=== PATIENT | female | born 1960 | race Two or more races ===

== ENCOUNTER 2024-12-06 09:04 | Day surgery (SDC) | payer MEDICARE, MEDICAID ==
[~2024-12-06] VITALS: Ht 149.9 cm; Wt 64.4 kg
[2024-12-06] MEDS ORDERED: ASPI1TAB20 PO (09:28)
[2024-12-06] MEDS ORDERED: ATOR20TA PO (09:28)
[2024-12-06] MEDS ORDERED: CHOLCAP10 PO (09:28)
--- NOTE | 2024-12-06 11:11 | DVHHP2 ---
GI H&P Pre-Op Assessment Date: 12/06/24 Chief complaint: Blood in stool HPI: per clinic note Past medical history: per clinic note Past surgical history: per clinic note Family history: per clinic note Physical exam: General: NAD, AAOX3 HEENT: PERRL, no scleral icterus, normal hearing, gums without lesions or ble eding, oropharynx clear without erythema or exudate. Neck: Supple without enlargement of the thyroid, or lymphadenopathy. Chest: Normal size and shape, no tenderness, lung wilson clear to auscultation and percussion, nonlabored breathing. Heart: RRR, no murmur Abdomen: non-distended, no tenderness to palpation, +BS, no hepatosplenomegaly Extremities: no edema Neurological: CN II-XII intact, sensation intact in all extremities, 5+ strength in all extremities Skin: No rashes, No jaundice Assessment: - blood in stool Plan: - Colonoscopy - Risks (bleeding, infection, perforation, reaction to sedation medications and cardiopulmonary arrest) and benefit of the procedure were explained to patient. Patient agrees to undergo the procedure. DEMARCUS OSMAN MD Dec 06, 2024 11:11
--- NOTE | 2024-12-06 11:33 | DVHOP2 ---
Operative Report DATE OF OPERATION: 12/06/24 PROCEDURE: Colonoscopy. PREOPERATIVE INDICATION: The patient is a 64 -year-old female undergoing colonoscopy for blood in stool. POSTOPERATIVE DIAGNOSES: 1. 3 mm transverse colon polyp was removed with cold biopsy forceps. 2. Few small diverticulosis in the left colon. 3. Internal hemorrhoids PROCEDURE PERFORMED BY: Ezequiel Moore M.D. SCOPE: Olympus videocolonoscope. ASA CLASS: 3 PREOPERATIVE MEDICATIONS: MAC with Dr Mays PROCEDURE IN DETAIL: After obtaining an informed consent, the patient was placed on left lateral decubitus position. She was then sedated with the above medications. A rectal examination was performed that was normal. The colonoscope was then passed through the anus into the rectosigmoid and through the descending, transverse, and ascending colon up to the cecum with vi sualization of the appendiceal orifice, base of the cecum and the ileocecal valve. A 3 mm transverse colon polyp was removed with cold biopsy forceps. There was a few small diverticulosis in the left colon. There were internal hemorrhoids. The colonoscope was then withdrawn. The patient tolerated the procedure well without difficulty. WITHDRAWAL TIME: 6 minutes QUALITY OF THE PREP: [place] Bowel Prep score: 6 COMPLICATIONS : None SPECIMENS: Colon polyp DISPOSITION: D/C to home PLAN: 1. Repeat colonoscopy base on biopsy result EZEQUIEL MOORE MD Dec 06, 2024 11:33
--- NOTE | 2024-12-06 11:33 | DVHDS2 ---
Physician Discharge Progress N Final Diagnosis: Colon polyp, diverticulosis, internal hemorrhoids Operations or Procedures: Operations or Procedures Colonoscopy with cold biopsy polypectomy Condition on Discharge: Good Disposition: Home Discharge Instructions: Diet: Regular Activity: No Restrictions, As Tolerated Medications: Resume previous home medications Follow Up Care: Discharge Statement: "Patient was advised to return to the ER or call 911 if any headaches, dizziness, shortness of breath, chest pain, abdominal pain, bleeding, fevers, or worsening of medical condition. Patient was counseled about treatment plan, medications, possible side effects, patientverbalized understanding. All questions were answered to the best of my ability. This discharge took greater then 30 minutes in planning, reviewing documentation, counseling the patient, and discussing with other team members." DEMARCUS OSMAN MD Dec 06, 2024 11:33
[2024-12-06 11:35] VITALS: TEMP 97.6; O2SAT 97
[2024-12-06 12:20] VITALS: BP 153/71; PULSE 63; RESP 13; O2SAT 97
== END 2024-12-06 12:38 | disposition home or self-care (01) ==
LOC: GI 09:04
PROVIDERS: ATTEND Internal Medicine Gastroenterology
DX: K92.1 Melena (principal); D12.3 Benign neoplasm of transverse colon; K57.30 Diverticulosis of large intestine without perforation or abscess without bleeding; K64.8 Other hemorrhoids; I10 Essential (primary) hypertension; E11.9 Type 2 diabetes mellitus without complications; E78.5 Hyperlipidemia, unspecified; Z79.899 Other long term (current) drug therapy
CPT/HCPCS: 45380; 88305; J7030

== ENCOUNTER 2025-06-11 11:01 | Emergency (ER) | payer MEDICARE, MEDICAID ==
[~2025-06-11] VITALS: Ht 149.9 cm; Wt 67.5 kg
[~2025-06-11 11:01] MED LIST: ASPI1TAB20 PO; ATOR20TA PO; CHOLCAP10 PO
--- NOTE | 2025-06-11 12:17 | ED.PDOC ---
Musculoskeletal HPI Comments 65 year old female presents to the ED with a chief complaint of LT leg calf onset 2 weeks. Patient states she has been experiencing, constant, sharp LT calf pain. Patient states she has taken Naproxen, Tylenol for pain with no improvement of symptoms. She has seen PCP, states there has been no workup done. No other symptoms or modifying factors present at this time. Denies fall, injury, trauma Denies numbness/tingling Denies fever, chills, nausea vomiting Chief Complaint: Lower Extremity Time Seen by MD: 12:05 Reviewed Notes: Medications, Allergies Allergies: Coded Allergies: Diclofenac (Verified Allergy, Unknown, 06/11/25) RASH Home Meds Reported Medications Atorvastatin Calcium (Lipitor) 20 Mg Tab, 20 MG PO DAILY, TAB 12/06/24 Aspirin (Aspir-81) 81 Mg Tab, 81 MG PO DAILY, TAB 12/06/24 Cholecalciferol (D2000 Ultra Strength) 2,000 Unit Cap, 2000 UNIT PO DAILY, CAP 12/06/24 Information Source: Patient Mode of Arrival: Ambulatory Location: Left Extremity Location: Calf Timing: Weeks Prehospital treatment: None Severity: Moderate Able to Move Extremity: Yes Bear Weight: Limited Pain: Moderate Mechanism: Spontaneous Circumstances: Spontaneous Onset of Symptoms: Spontaneous Symptoms: Pain DVT Risk Factors: NONE Associated signs and symptoms: Other (calf pain) Past Medical History PAST MEDICAL HISTORY: Denies Surgical History: Denies all surgeries RADIATION ONCOLOGY NURSE History: No Pertinent RADIATION ONCOLOGY NURSE History Family History Family History: Reviewed,noncontributory to illness, No family hx of Cancer, No family hx of DM, No family hx of Heart rolly, No family hx of HTN, No family hx ofKidney rolly, No family hx of Liver rolly, No family hx of Lung rolly, No family hx of Stroke Social History Smoker: Non-Smoker Alcohol: Denies ETOH Use Drugs: Denies Drug Use Lives In: Home All Other Systems: Reviewed and Negative (as per HPI) Physical Exam General Appearance: Normal HEENT: Normal ENT Inspection, Pharynx Normal, TMs Normal Neck: Full Range of Motion, Non-Tender, Normal, Normal Inspection Respiratory: Chest Non-Tender, Lungs Clear, No Accessory Muscle Use, No Resp iratory Distress, Normal Breath Sounds Cardiovascular: No Edema, No JVD, No Murmur, No Gallop, Normal Peripheral Pulses, Regular Rate/Rhythm Breast Exam: Deferred Gastrointestinal: No Organomegaly, Non Tender, No Pulsatile Mass, Normal Bowel Sounds, Soft Genitalia: Deferred Pelvic: Deferred Rectal: Deferred Extremities: No calf tenderness, Normal capillary refill, No pedal edema Musculoskeletal : Location: Left Extremity Location: Calf (no significant swelling or erythema. Localized TTP to calf) Apperance: Normal Neurologic: Alert, bi tri operator II-XII nml as Tested, No Motor Deficits, Normal Affect, Normal Mood, No Sensory Deficits Cerebellar Function: Normal Reflexes: Normal Skin: Dry, Normal Color, Warm Lymphatic: No Adenopathy Was a procedure done? Was a procedure done?: No X-Ray, Labs, Meds, VS Vital Signs Date Time Temp Pulse Resp B/P (MAP) Pulse Ox O2 Delivery O2 Flow Rate FiO2 06/11/25 11:02 97.4 81 20 149/59 99 97.4 [place] [address] Ph: [phone] DIAGNOSTIC IMAGING Diagnostic Imaging Report : [id number] Signed PATIENT: SUSAN AUGUSTIN ACCT: [id number] UNIT: [id number] : 1960 LOC: ER ROOM / BED: / AGE / SEX: 65 / F ADM STATUS: REG ER SERVICE [id number] ORDERING PHYSICIAN: CLAUDIA WALTERS NP PROCEDURE(s): LLDVT - LT Lower DVT REASON: r/o dvt ORDER NUMBER(s): [id number], ACCESSION NUMBER(s): [id number] Left lower extremity venous duplex CLINICAL HISTORY: r/o dvt COMPARISON: None TECHNIQUE: Duplex Doppler evaluation of the deep venous system of the left lower extremity from the common femoral vein to the popliteal vein including color Doppler and spectral/pulsed waveform analysis was performed. FINDINGS: The common femoral vein demonstrates appropriate compressibility and waveform variability. There is compressibility/patency of the great saphenous vein at the proximal thigh. The femoral vein demonstrates appropriate compressibility and waveform variability. The deep femoral vein demonstrates appropriate compressibility and waveform variability. The popliteal vein demonstrates appropriate compressibility and waveform variability. There is normal compressibility at the tibioperoneal trunk. IMPRESSION: No left femoropopliteal venous thrombosis. ATED BY: MEDHAT GARCIA MD DICTATED DATE/TIME: 06/11/25 1300 SIGNED BY: MEDHAT GARCIA MD SIGNED DATE/TIME: 06/11/25 1300 CC: X-Ray, Labs, Meds, VS Comment 65 year old female presents to the ED with a chief complaint of LT leg calf onset 2 weeks. Patient arrives alert and oriented, ABC's intact, afebrile, vital signs stable, saturating well in room air Diagnostic imaging ordered by me and results interpreted by radiology : US LT LOWER DVT: IMPRESSION: No left femoropopliteal venous thrombosis. Additional MDM Review of External, Non-ED records: External records reviewed. Discussion with independent historian (EMS, family) history obtained from the patient/parents (if applicable) at bedside Chronic conditions affecting care: None Social determinants of health affecting care: None Consideration of admission (observation or admission): I considered escalation of care to admission for this patient, however given the reassuring workup, the patient is safe for outpatient management. On reevaluation, patient had symptomatic improvement. Patient is stable for discharge at this time. External notes reviewed. Test results and diagnostic imaging interpreted. All diagnostic findings, discharge care, education and instructions provided Follow-up with PCP in 2 to 3 days Patient verbalized understanding and agreed to treatment plan Vital signs stable, afebrile, no acute distress noted Patient ambulatory with strong steady gait Advised to return precautions for any new or worsening symptoms, return to ER immediately for re-evaluation Patient is aware that the purpose of this visit was for an acute medical emergency requiring emergent stabilization. Chronic conditions, including malignancies have not been ruled out. Patient is instructed to follow up with PCP as directed and discharge instructions for continued care and workup. If unable to arrange follow-up, patient is to return to the emergency department for reassessment. Patient (parent or legal guardian if applicable) was given verbal and written discharge instructions and acknowledges understanding. Time of 1ST Reevaluation: 12:35 Reevaluation 1ST: Improved Patient Education/Counseling: Diagnosis, Treatment Family Education/Counseling: No Family Present Departure 1 Departure Time of Disposition: 13:05 Impression: Primary Impression: Left leg pain Disposition: 01 HOME / SELF CARE / HOMELESS Condition: Stable Critical Care Note Critical Care Time?: No Stability Stability form required: No Heart Score Heart Score: Heart Score Response (Comments) Value History N/A 0 EKG N/A 0 Age N/A 0 Risk Factors N/A 0 Troponin N/A 0 Total 0 I personally scribed for CLAUDIA WALTERS NP ([email or web address]) on 06/11/25 at 12:17. Electronically submitted by Dara Neal ([email or web address]). I personally scribed for CLAUDIA WALTERS NP ([email or web address]) on 06/11/25 at 13:19. Electronically submitted by Dara Neal ([email or web address]). CLAUDIA WALTERS NP Jun 11, 2025 12:17
--- NOTE | 2025-06-11 13:03 | DVH ---
Left lower extremity venous duplex CLINICAL HISTORY: r/o dvt COMPARISON: None TECHNIQUE: Duplex Doppler evaluation of the deep venous system of the left lower extremity from the common femoral vein to the popliteal vein including color Doppler and spectral/pulsed waveform analysis was performed. FINDINGS: The common femoral vein demonstrates appropriate compressibility and waveform variability. There is compressibility/patency of the great saphenous vein at the proximal thigh. The femoral vein demonstrates appropriate compressibility and waveform variability. The deep femoral vein demonstrates appropriate compressibility and waveform variability. The popliteal vein demonstrates appropriate compressibility and waveform variability. There is normal compressibility at the tibioperoneal trunk. IMPRESSION: No left femoropopliteal venous thrombosis.
[2025-06-11 13:43] VITALS: BP 132/87; PULSE 64; RESP 16; TEMP 98.2; O2SAT 98
== END 2025-06-11 13:44 | disposition home or self-care (01) ==
LOC: ER 11:01
DX: M79.662 Pain in left lower leg (principal); Z79.82 Long term (current) use of aspirin; Z79.899 Other long term (current) drug therapy
CPT/HCPCS: 93971